=== PATIENT | male | born 1975 | race Caucasian/White ===

== ENCOUNTER 2018-11-17 09:14 | Emergency (ER) | payer OTHER ==
[~2018-11-17] VITALS: Ht 177.8 cm; Wt 106.6 kg
[~2018-11-17 09:14] MED LIST: ACET500T98 PO
[2018-11-17 09:17] VITALS: Ht 177.8 cm; Wt 106.6 kg
[2018-11-17] MEDS ORDERED: OMEP40CA6 PO (10:29)
[2018-11-17] MEDS ORDERED: METF500T24 PO (10:29)
[2018-11-17 11:30] VITALS: BP 133/99; PULSE 91; RESP 18
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
== END 2018-11-17 11:47 | disposition home or self-care (01) ==
LOC: E/R 09:14
DX: R20.0 Anesthesia of skin (principal); I10 Essential (primary) hypertension; R40.2142 Coma scale, eyes open, spontaneous, at arrival to emergency department; R40.2362 Coma scale, best motor response, obeys commands, at arrival to emergency department; R40.2252 Coma scale, best verbal response, oriented, at arrival to emergency department; Z79.84 Long term (current) use of oral hypoglycemic drugs
CPT/HCPCS: 36415; 70450; 71045; 80053; 80061; 80307; 81003; 82962; 83036; 84484; 85025; 85610; 85730; 93005; Z7502